=== PATIENT | male | born 1995 | race Caucasian/White ===

== ENCOUNTER 2025-07-26 22:05 | Emergency (ER) | payer SELFPAY ==
[~2025-07-26] VITALS: Ht 180.3 cm; Wt 84.0 kg
[2025-07-26 22:05] VITALS: O2SAT 98
[2025-07-26 22:13] VITALS: BP 139/96; PULSE 99; RESP 16; TEMP 36.9; O2SAT 98
[2025-07-26] MEDS ORDERED: CEPH500T MT (23:07)
== END 2025-07-26 23:21 | disposition home or self-care (01) ==
LOC: ER 22:05
DX: L08.9 Local infection of the skin and subcutaneous tissue, unspecified (principal)
CPT/HCPCS: 99283